=== PATIENT | female | born 1950 | race Caucasian/White ===

== ENCOUNTER 2020-01-28 14:38 | Observation (INO) | payer MEDICARE, OTHER ==
[~2020-01-28] VITALS: Ht 167.6 cm; Wt 81.6 kg
[~2020-01-28 14:38] MED LIST: LEVOTHYROXINE88 MCG PO; PRAVASTATIN SOD20 MG PO
--- NOTE | 2020-01-28 16:56 | Diagnostic Imaging Report ---
EXAM: Right upper quadrant abdominal ultrasound INDICATION: Right upper quadrant pain COMPARISON: None TECHNIQUE: Transverse and longitudinal images of the right upper quadrant abdomen were obtained FINDINGS: Liver: Size: Difficult to measure due to large right hepatic cyst occupying the majority of the field of view. Appearance: Normal echogenicity, smooth contour Mass: Large right hepatic anechoic cyst measures at least 14.9 x 16.3 x 12.6cm Gallbladder: Multiple shadowing gallstones in the gallbladder. No gallbladder wall thickening, pericholecystic fluid, or gallbladder distention. Negative sonographic Ozuna's sign. Gallbladder wall measures 2 mm. Bile Ducts: Intrahepatic Ducts: No dilatation Extrahepatic Ducts: Common bile duct measures 7 mm Pancreas: Visualized portions of the pancreatic head, neck and proximal body are normal. Kidney: The right kidney measures 10.6 cm without evidence of hydronephrosis or stone. Vessels: Aorta: Visualized portions are normal Inferior Vena Cava: Visualized portions are normal Main Portal Vein: 0.7 cm, normal size with hepatopetal flow. IMPRESSION: Cholelithiasis without sonographic evidence of cholecystitis. Large right hepatic cyst measures at least 16 cm maximum diameter. Signed by: Naman Holcomb MD on 01/28/2020 4:53 PM
[2020-01-28 17:41] VITALS: BP 138/96
[2020-01-28 17:59] VITALS: BP 138/96
[2020-01-28] MEDS ORDERED: ONDANSETRON HCL INJ 2MG/ML 2ML 2 MG/ML VIAL IV PRN (18:00)
[2020-01-28 18:03] VITALS: BP 138/96
[2020-01-28 18:14] VITALS: BP 138/96
[2020-01-28 18:36] LABS: BASOPHILS # (AUTO) 0.1 (0.0-0.1); BASOPHILS % 0.7 % (0.0-1.0); EOSINOPHILS # (AUTO) 0.2 (0.0-0.4); EOSINOPHILS % 2.8 % (0.0-6.0); HEMATOCRIT 40.4 % (34.2-44.1); HEMOGLOBIN 12.9 g/dL (12.0-16.0); LYMPHOCYTES # (AUTO) 1.7 (1.0-3.2); LYMPHOCYTES % 23.2 % (18.0-39.1); MEAN CORPUSCULAR HGB CONC 31.9 g/dL (31-35); MONOCYTES # (AUTO) 0.6 (0.2-0.8); MONOCYTES % 8.7 % (4.4-11.3); NEUTROPHILS # (AUTO) 4.7 (2.1-6.9); NEUTROPHILS % 64.3 % (38.7-80.0); PLATELET COUNT 259 x10e3/uL (140-360)
[2020-01-28] MEDS: SODIUM CHLORIDE 0.9% 1000ML 1,000 ML IV SCH (18:50)
[2020-01-28] MEDS: PANTOPRAZOLE 40 MG 10ML VIAL IV SCH (18:50)
[2020-01-28 18:54] LABS: ALANINE AMINOTRANSFERASE 49 IU/L (0-55); ALBUMIN/GLOBULIN RATIO 1.1 (0.8-2.0); ALKALINE PHOSPHATASE 94 IU/L (40-150); ANION GAP 14.6 mmol/L (8-16); BLOOD UREA NITROGEN 15 mg/dL (7-26); BUN/CREATININE RATIO 19 (6-25); CALCIUM 9.7 mg/dL (8.4-10.2); CARBON DIOXIDE 28 mmol/L (22-29); CHLORIDE 104 mmol/L (98-107); CREATININE, SERUM 0.81 mg/dL (0.57-1.11); EST GLOMERULAR FILTRATION RATE > 60 ML/MIN (60-); GLUCOSE 89 mg/dL (74-118); POTASSIUM 4.6 mmol/L (3.5-5.1); SODIUM 142 mmol/L (136-145)
[2020-01-28 20:00] VITALS: BP 138/80
--- NOTE | 2020-01-28 20:21 | NUR ---
RECEIVED PT IN BED AOX3 ,PT IS HERE ACUTE CHOLECYSTIS RT WRIST 20G NS AT 100CC/HR .PT HAS NO TELE .CALL LIGHT WITH IN REACH .CONTINUE TO MONITOR
[2020-01-28 20:26] VITALS: BP 138/96
[2020-01-28] MEDS: CEFTRIAXONE SOD 1 GM/NS 50 ML 50 ML IV SCH (21:03)
[2020-01-29] VITALS (9 sets, daily range): BP systolic 126–147; BP diastolic 72–90
[2020-01-29] MEDS: HYDROCODONE/APAP 7.5MG-325MG 1 EA TAB PO PRN ×2 (00:28→21:00)
[2020-01-29] MEDS ORDERED: IOPAMIDOL 370 MG/ML 200 ML INFUS..BTL INJ ONE (03:07)
[2020-01-29] MEDS ORDERED: SODIUM CHLORIDE 0.9% 50ML 50 ML ONE (03:08)
[2020-01-29] MEDS: SODIUM CHLORIDE 0.9% 1000ML 1,000 ML IV SCH ×2 (06:07→14:00)
--- NOTE | 2020-01-29 06:25 | NUR ---
PT RESTING ,PT IS NPO .CALL LIGHT WITH IN REACH .CONTINUE TO MONITOR
--- NOTE | 2020-01-29 07:00 | NUR ---
RECEIVED PATIENT RESTING IN BED NO S/S OF DISTRESS. BED LOW, WHEELS LOCKED, SIDE RAILS X2. CALL LIGHT IN REACH WILL CONTINUE TO MONITOR PATIENT.
--- NOTE | 2020-01-29 09:00 | Diagnostic Imaging Report ---
EXAM: CT Abdomen WITHOUT and WITH intravenous contrast - Liver mass protocol INDICATION: Liver mass, large liver cyst COMPARISON: None. TECHNIQUE: The abdomen was scanned utilizing a multidetector helical scanner from the lung base to the iliac crest before and after administration of IV contrast (in arterial, venous, and 5 minute delay phases). Coronal and sagittal reformations were obtained. Liver mass protocol was used. IV CONTRAST: 100 mL of Isovue 370 ORAL CONTRAST: Water COMPLICATIONS: None RADIATION DOSE: Total DLP: 1332 mGy*cm Dose modulation, iterative reconstruction, and/or weight based adjustment of the mA/kV was utilized to reduce the radiation dose to as low as reasonably achievable. FINDINGS: LOWER THORAX: Mild bibasilar dependent subsegmental atelectasis. HEPATOBILIARY: 12.1 x 14.3 x 18.4 cm simple cyst occupying the majority of the right liver. Additional smaller subcentimeter right and left hepatic cysts. No enhancing mass lesion. No biliary ductal dilation. Cholelithiasis without CT evidence of cholecystitis. Gallbladder wall calcifications. SPLEEN: No splenomegaly. PANCREAS: No focal masses or ductal dilatation. ADRENALS: No adrenal nodules. KIDNEYS: No hydronephrosis, stones, or solid mass lesions. PERITONEUM / RETROPERITONEUM: No free air or fluid. LYMPH NODES: No lymphadenopathy. VESSELS: Mild scattered atherosclerotic calcifications of the nonaneurysmal abdominal aorta and major branches. GI TRACT: No distention or wall thickening. BONES AND SOFT TISSUES: No acute osseous injury. No suspicious lytic or blastic lesions. IMPRESSION: Large right hepatic cyst occupies the majority of the right liver. No associated enhancement or septation. Smaller subcentimeter cysts scattered throughout the liver. Cholelithiasis and mild gallbladder wall calcifications. No CT evidence of cholecystitis. Signed by: Naman Holcomb MD on 01/29/2020 8:57 AM
[2020-01-29] MEDS ORDERED: HYDROMORPHONE 1MG/1ML INJ IV PRN (09:45)
--- NOTE | 2020-01-29 10:10 | NUR ---
Pt. expressed no spiritual or emotional concerns at this time. [facility] provided hospitality and information on how to reach carpenter supervisor, if needed. No need to follow at this time. MOI HERNANDEZ [facility] O: [phone]
--- NOTE | 2020-01-29 11:50 | NUR ---
CONSENT SIGNED BY PATIENT FOR PROCEDURE AND PLACED INTO CHART.
--- NOTE | 2020-01-29 12:00 | NUR ---
PATIENT LEFT TO OR IN STABLE CONDITION.
[2020-01-29] MEDS ORDERED: BUPIVACAINE 0.25%/EPI 30ML SDV INJ ONE (12:07)
[2020-01-29] MEDS ORDERED: ACETAMINOPHEN 1000 MG/100 ML IV PRN (14:00)
[2020-01-29] MEDS ORDERED: FENTANYL CITRATE/PF 100MCG/2 ML INJ ONE (14:32)
[2020-01-29] MEDS ORDERED: ONDANSETRON HCL INJ 2MG/ML 2ML 2 MG/ML VIAL ONE (14:35)
[2020-01-29] MEDS ORDERED: METOCLOPRAMIDE HCL 10 MG/2ML VIAL ONE (14:35)
[2020-01-29] MEDS ORDERED: LACTATED RINGER'S 1,000 ML ONE (14:38)
[2020-01-29] MEDS ORDERED: PROMETHAZINE HCL (IM) 25 MG/ML VIAL ONE (14:44)
--- NOTE | 2020-01-29 15:12 | Operative Report ---
DATE OF PROCEDURE: 01/29/2020 SURGEON: César Gorman MD PREOPERATIVE DIAGNOSES: Cholecystitis, cholelithiasis, and large cyst of the right lobe of the liver. POSTOPERATIVE DIAGNOSES: Cholecystitis, cholelithiasis, and large cyst of the right lobe of the liver. OPERATION PERFORMED: Laparoscopic cholecystectomy. ANESTHESIA: General. COMPLICATIONS: None. ESTIMATED BLOOD LOSS: Minimal. DESCRIPTION OF PROCEDURE: With the patient lying in bed in the supine position under general endotracheal anesthesia, the abdomen was prepped with Betadine solution and draped in the usual manner. A Veress needle was introduced into the umbilicus and pneumoperitoneum was established without any difficulty. An 11 mm trocar was placed into the umbilicus and a 10 mm video laparoscope was placed into the abdominal cavity. Under direct vision, three 5 mm trocars were placed in the right subcostal region. Video laparoscopy at this point revealed a gallbladder that was thick-walled and tensely distended, covered up with adhesions from obvious multiple episodes of cholecystitis. The top of the gallbladder appeared to be partially calcified and there were stones throughout the gallbladder. Examination of the liver revealed that laparoscopically we could not actually see a large cyst, that was seen on the ultrasound and the CT scan as she was apparently completely contained within the liver itself, all of the surface of the liver appeared to be normal and therefore, we decided that we would not drain the cyst as this was probably just an incidental finding in spite of the fact that the patient has a very large size, probably all of her abdominal pain symptoms were related to the gallbladder, so we decided to simply proceed with a cholecystectomy and if the patient is to have any residual symptoms after she has healed, then consideration might have to be given to percutaneous drainage of the liver cyst, it was my feeling that it was not indicated to do so at this time. All of the adhesions to the gallbladder were then slowly and carefully taken down. The peritoneum overlying the neck of the gallbladder was then opened and the cystic duct was identified. The cystic duct was followed to its junction with the common duct. The cystic duct was then circumferentially dissected away from the common duct, doubly clipped and divided. The cystic artery had an anterior and a posterior branch and both of these were individually clipped and divided. The gallbladder was then slowly and carefully taken off the liver bed using the cautery scissors and perfect hemostasis was ascertained. The gallbladder was then placed in a pouch and removed through the umbilicus after enlarging the incision to allow for passage of the large stones and calcified gallbladder. Once this was done, video laparoscopy was then again carried out, the liver bed was found to be perfectly dry all of the excess fluid was aspirated. The pneumoperitoneum was evacuated and all the trocars were removed under direct vision. The midline fascia at the umbilicus was then closed with 2 [id number] of 0 Vicryl, all layers were infiltrated on the way out with solution of 0.25% Marcaine. Subcutaneous tissue was approximated with 3-0 Vicryl and the skin was closed with subcuticular 5-0 Vicryl. Benzoin, Steri-Strips, and Band- Aids were applied. The sponge, lap, and needle counts were correct. The patient tolerated the procedure well and returned to the recovery room in stable condition. MD SUNNI Yen/LUIS /[id number]
--- NOTE | 2020-01-29 15:21 | NUR ---
PATIENT BACK FROM SURGERY IN STABLE CONDITION.
[2020-01-29] MEDS: PANTOPRAZOLE 40 MG 10ML VIAL IV SCH (17:42)
[2020-01-29] MEDS: CEFTRIAXONE SOD 1 GM/NS 50 ML 50 ML IV SCH (17:42)
--- NOTE | 2020-01-29 19:48 | NUR ---
RECEIVED PT IN BED AOX3 ,PT HAD LAP HEMANT AND ABD WITH 4 BANAID .PT C/O PAIN CALL LIGHT WITH IN REACH ,CONTINUE TO MONITOR
[2020-01-30 00:36] VITALS: BP 114/68
[2020-01-30 04:00] VITALS: BP 143/69
[2020-01-30] MEDS: HYDROCODONE/APAP 7.5MG-325MG 1 EA TAB PO PRN ×2 (04:30→11:10)
[2020-01-30 04:55] LABS: BASOPHILS % 0.5 % (0.0-1.0); EOSINOPHILS # (AUTO) 0.2 (0.0-0.4); EOSINOPHILS % 3.7 % (0.0-6.0); HEMATOCRIT 36.5 % (34.2-44.1); HEMOGLOBIN 11.4 g/dL (12.0-16.0); LYMPHOCYTES # (AUTO) 1.5 (1.0-3.2); LYMPHOCYTES % 25.5 % (18.0-39.1); MEAN CORPUSCULAR HEMOGLOBIN 30.4 pg (28-32); MEAN CORPUSCULAR HGB CONC 31.2 g/dL (31-35); MONOCYTES # (AUTO) 0.7 (0.2-0.8); MONOCYTES % 11.3 % (4.4-11.3); NEUTROPHILS # (AUTO) 3.4 (2.1-6.9); NEUTROPHILS % 58.8 % (38.7-80.0); PLATELET COUNT 198 x10e3/uL (140-360); RED BLOOD COUNT 3.75 x10e6/uL (3.6-5.1); RED CELL DISTRIBUTION WIDTH 11.7 % (11.7-14.4)
[2020-01-30 05:04] LABS: MEAN CORPUSCULAR VOLUME 97.3 fL (81-99)
[2020-01-30 05:16] LABS: ALANINE AMINOTRANSFERASE 105 IU/L (0-55); ALBUMIN 3.2 g/dL (3.5-5.0); ALBUMIN/GLOBULIN RATIO 1.2 (0.8-2.0); ALKALINE PHOSPHATASE 72 IU/L (40-150); BLOOD UREA NITROGEN 8 mg/dL (7-26); BUN/CREATININE RATIO 11 (6-25); CALCIUM 8.1 mg/dL (8.4-10.2); CARBON DIOXIDE 26 mmol/L (22-29); CHLORIDE 108 mmol/L (98-107); CREATININE, SERUM 0.71 mg/dL (0.57-1.11); EST GLOMERULAR FILTRATION RATE > 60 ML/MIN (60-); GLUCOSE 77 mg/dL (74-118); SODIUM 140 mmol/L (136-145)
[2020-01-30] MEDS: SODIUM CHLORIDE 0.9% 1000ML 1,000 ML IV SCH (05:49)
--- NOTE | 2020-01-30 06:26 | NUR ---
C/O PAIN AND GIVEN ORDERED PAIN MEDICATION .CONTINUE TO MONITOR
--- NOTE | 2020-01-30 07:00 | NUR ---
RECEIVED PT RESTING NO C/O PAIN AT THIS TIME.
[2020-01-30 08:00] VITALS: BP 133/70
--- NOTE | 2020-01-30 11:10 | NUR ---
PT C/O PAIN MEDICATED ORDERED.
[2020-01-30 12:01] VITALS: BP 141/79
--- NOTE | 2020-01-30 14:00 | NUR ---
DR PIZARRO TO SEE PT.
[2020-01-30] MEDS ORDERED: TYLENOL # 31 EA PO (14:15)
[2020-01-30] MEDS ORDERED: KEFLEX500 MG PO (14:16)
--- NOTE | 2020-01-30 14:35 | NUR ---
PT IV REMOVED AND DISCHARGE INSTRUCTION GIVEN ALONG WITH PRESCRIPTIONS. PT WAITING ON RIDE.
--- NOTE | 2020-01-30 15:10 | NUR ---
PT ACCOMPANIED PT OUT VIA WC. FAMILY WAITING IN [employer]IVATE [employer]
== END 2020-01-30 15:15 | disposition home or self-care (01) ==
LOC: US 14:38 → INTOOBSV 16:21 → MED/SURG 16:21
DX: K80.12 Calculus of gallbladder with acute and chronic cholecystitis without obstruction (principal); E03.9 Hypothyroidism, unspecified; E78.5 Hyperlipidemia, unspecified; Z11.59 Encounter for screening for other viral diseases; K82.8 Other specified diseases of gallbladder; K76.89 Other specified diseases of liver; I10 Essential (primary) hypertension
CPT/HCPCS: 36415 ×2; 47562; 74170; 76705; 80053 ×2; 85025 ×2; 87635; 88304; 96360; C1766; C9113 ×2; G0378 ×3; J0696 ×2; J2405; J2550; J2765; J3010; J7030 ×3; J7121; Q9967